=== PATIENT | female | born 1940 | race Caucasian/White ===

== ENCOUNTER 2019-01-10 09:45 | Emergency (ER) | payer MEDICARE ==
[~2019-01-10] VITALS: Ht 157.5 cm; Wt 56.7 kg
--- OUTSIDE RECORDS SUMMARY | ~2019-01-10 | XMS | Clinical Summary ---
Demographics + + + | Address | [address] [place] [address] | | | [place] [address] | + + + | Home Phone | | + + + | Preferred Language | Unknown | + + + | Marital Status | Single | + + + | Quaker Affiliation | Unknown | + + + | Race | White | + + + | Ethnic Group | Not or | + + + Author + + + | Author | [facility] | + + + | Organization | [facility] | + + + | Address | Unknown | + + + | Phone | Unavailable | + + + Care Team Providers + +------+ + | Care Recordak Operator Name | Role | Phone | + +------+ + | Pamela Helm MD | PP | | + +------+ + Source Comments SHAUNA is fully live on both [facility] and [facility] Allergies Not on File Current Medications Not on file Active Problems Not on file Social History + +-------+ +--------+------+ | Tobacco Use | Types | Packs/Day | Years | Date | | | | | Used | | + +-------+ +--------+------+ | Never Assessed | | | | | + +-------+ +--------+------+ + + + | Sex Assigned at | Date Recorded | | | | + + + | Not on file | | + + + Plan of Treatment + + + + + | Health Maintenance | Due Date | Last Done | Comments | + + + + + | OSTEOPOROSIS | | | | | SCREENING/FOLLOW UP | 3 | | | + + + + + | Diphtheria,Tetanus,P | | | | | ertussis | 2 | | | | (DTaP/Tdap/Td) (1 - | | | | | Tdap) | | | | + + + + + | Zoster (Shingles) | | | | | vaccination (1 of 2) | 3 | | | + + + + + | Pneumococcal (Adult) | | | | | (1 of 2 - PCV13) | 8 | | | + + + + + | Influenza (Flu) | | | | | vaccination (Season | 9 | | | | Ended) | | | | + + + + + Results Not on filefrom Last 3 Months"
[~2019-01-10 09:45] MED LIST: ATENOLOL25 MG PO
[2019-01-10] MEDS ORDERED: OMEPRAZOLE20 MG PO (10:01)
[2019-01-10] MEDS ORDERED: MONTELUKAST SOD10 MG PO (10:02)
== END 2019-01-10 11:23 | disposition home or self-care (01) ==
LOC: ED 09:45
DX: T78.40XA Allergy, unspecified, initial encounter (principal); I10 Essential (primary) hypertension; Z79.899 Other long term (current) drug therapy; Z91.09 Other allergy status, other than to drugs and biological substances
CPT/HCPCS: 96374; 96375; 99283-25; J1200; J2930

== ENCOUNTER 2019-02-23 10:48 | Emergency (ER) | payer MEDICARE, OTHER ==
[~2019-02-23] VITALS: Ht 157.5 cm; Wt 56.7 kg
[~2019-02-23 10:48] MED LIST changes: +MONTELUKAST SOD10 MG PO; +OMEPRAZOLE20 MG PO
== END 2019-02-23 12:12 | disposition home or self-care (01) ==
LOC: ED 10:48
DX: S82.432A Displaced oblique fracture of shaft of left fibula, initial encounter for closed fracture (principal); I10 Essential (primary) hypertension; Z91.048 Other nonmedicinal substance allergy status; Z79.899 Other long term (current) drug therapy; W01.0XXA Fall on same level from slipping, tripping and stumbling without subsequent striking against object, initial encounter
CPT/HCPCS: 73610; 99283